=== PATIENT | female | born 1990 | race Hispanic/Latino ===

== ENCOUNTER 2018-01-14 07:14 | Day surgery (SDC) | payer MEDICAID ==
[~2018-01-14] VITALS: Ht 149.9 cm; Wt 73.7 kg
[~2018-01-14 07:14] MED LIST: BISM262T18 PO; SODIUM CHLORIDE 0.9% 1000ML 1,000 ML IV ONE; VANC125C5 PO
[2018-01-14 07:28] VITALS: BP 137/78
[2018-01-14 12:20] VITALS: BP 125/71
[2018-01-14] MEDS ORDERED: PROPOFOL 10 MG/ML 20ML VIAL IV ONE ×2 (12:29→12:46)
[2018-01-14] MEDS ORDERED: FENTANYL CITRATE PF 50 MCG/1 ML 2ML VIAL IVP ONE (12:30)
[2018-01-14 13:09] VITALS: BP 116/51
== END 2018-01-14 13:42 | disposition home or self-care (01) ==
LOC: ENDO 07:14 → DAH 07:14 → ENDO 13:42
PROVIDERS: ATTEND Internal Medicine
DX: K52.89 Other specified noninfective gastroenteritis and colitis (principal); K29.50 Unspecified chronic gastritis without bleeding; K31.89 Other diseases of stomach and duodenum; Z79.899 Other long term (current) drug therapy; Z98.890 Other specified postprocedural states; Z82.49 Family history of ischemic heart disease and other diseases of the circulatory system
CPT/HCPCS: 43239; 45380; 81025; 88305; 88342; A4606; J2704 ×2; J3010; J7030

== ENCOUNTER 2020-04-04 07:26 | Day surgery (SDC) | payer MEDICAID ==
[~2020-04-04] VITALS: Ht 149.9 cm; Wt 73.9 kg
[~2020-04-04 07:26] MED LIST changes: -VANC125C5 PO; +VANC125C6 PO
[2020-04-04 08:42] VITALS: BP 133/79
[2020-04-04] MEDS ORDERED: SUCR1TAB2 PO (08:52)
[2020-04-04] MEDS ORDERED: PANT20TA12 PO (08:52)
[2020-04-04] MEDS ORDERED: BIFI10.5 PO (08:52)
[2020-04-04] MEDS ORDERED: ESTR1TAB17 PO (08:52)
[2020-04-04] MEDS ORDERED: CETI-109 PO (08:52)
[2020-04-04] MEDS ORDERED: DICY10CA13 PO (08:52)
[2020-04-04] MEDS ORDERED: PROPOFOL 10 MG/ML 20ML VIAL IV ONE ×2 (09:02→09:07)
[2020-04-04 09:14] VITALS: BP 117/65
[2020-04-04 09:18] VITALS: BP 112/73
[2020-04-04 09:24] VITALS: BP 110/45
== END 2020-04-04 09:48 | disposition home or self-care (01) ==
LOC: ENDO 07:26
PROVIDERS: ATTEND Internal Medicine
DX: R10.13 Epigastric pain (principal); K29.70 Gastritis, unspecified, without bleeding; K31.89 Other diseases of stomach and duodenum; R14.2 Eructation; K21.9 Gastro-esophageal reflux disease without esophagitis; K31.84 Gastroparesis; J30.9 Allergic rhinitis, unspecified; Z82.49 Family history of ischemic heart disease and other diseases of the circulatory system; Z79.899 Other long term (current) drug therapy
CPT/HCPCS: 36415; 43239; 84703; A4215; A4221; A4222; A4223; A4606; A4620; A4663; J2704 ×2; J7030